=== PATIENT | female | born 1990 | race Caucasian/White ===

== ENCOUNTER 2016-07-31 08:49 | Inpatient (IN) ==
[2016-07-31] MEDS ORDERED: LR 500 ML IV ONE (09:18)
[2016-07-31] MEDS ORDERED: ZOFRAN IV PRN (09:18)
[2016-07-31] MEDS ORDERED: PITOCIN 30 UNITS/LR 30 UNITS/500 ML IV.SOLN IV SCH (09:18)
[2016-07-31] MEDS ORDERED: REGLAN PO ONE (09:18)
[2016-07-31] MEDS ORDERED: STADOL IV PRN (09:18)
[2016-07-31] MEDS ORDERED: PEPCID PO ONE (09:18)
[2016-07-31] MEDS ORDERED: TYLENOL PO PRN (09:18)
[2016-07-31] MEDS ORDERED: PEPCID IV PRN (09:18)
[2016-07-31] MEDS ORDERED: PEPCID PO PRN (09:18)
[2016-07-31] MEDS ORDERED: KEFZOL 1 GM/D5W 1 GM/50 ML IVPB IV PRN (09:18)
[2016-07-31] MEDS ORDERED: SODIUM CHLORIDE 0.9% INJ SCH (09:30)
[2016-07-31] MEDS: LR 1,000 ML IV SCH ×2 (09:35→10:03)
[2016-07-31] MEDS ORDERED: MARCAINE 0.25% PF INJ ONE (09:45)
[2016-07-31] MEDS ORDERED: STADOL ONE (09:47)
[2016-07-31] MEDS ORDERED: FENTANYL-BUPIV-NS 2 MCG-0.1% 200 ML EPIDURAL ONE (10:00)
[2016-07-31] MEDS ORDERED: XYLOCAINE-MPF 1% ONE (10:07)
[2016-07-31] MEDS ORDERED: MINERAL OIL ONE (10:08)
[2016-07-31 10:24] LABS: URINE SOURCE VOIDED
[2016-07-31 10:30] LABS: BILIRUBIN URINE NEGATIVE (NEGATIVE); BLOOD URINE TRACE (NEGATIVE); GLUCOSE URINE NEGATIVE (NEGATIVE); LEUKOCYTES URINE NEGATIVE (NEGATIVE); NITRITE URINE NEGATIVE (NEGATIVE); PROTEIN URINE NEGATIVE (NEGATIVE); UROBILINOGEN URINE NORMAL
[2016-07-31 10:31] LABS: CLARITY CLEAR (CLEAR); COLOR YELLOW
[2016-07-31 10:45] LABS: BASO% 0.1 % (0.0-0.8); EOS# 0.03 X1000 (0.0-0.7); EOS% 0.1 % (0.0-10.0); IMM GRAN# 0.08 X1000 (0.0-0.04); IMM GRAN% 0.4 % (0.0-0.5); LYMPH# 1.75 X1000 (1.2-3.4); LYMPH% 7.9 % (20.5-51.1); MANUAL DIFF NEEDED? YES; MCH 32.2 PG (27-31); MCHC 35.1 g/dL (33-37); MCV 91.6 FL (81-99); MONO# 1.09 X1000 (0.11-0.59); MONO% 4.9 % (1.7-9.3); MPV 9.8 FL (7.4-10.4); NEUT% 86.6 % (42.2-75.2); PLT 263 X1000 (130-400); RBC 4.04 XMIL (4.2-5.4)
[2016-07-31 11:05] LABS: LYMPHS 13 % (21-51); MONO 4 % (1-9)
[2016-07-31] MEDS ORDERED: METHERGINE ONE (13:56)
[2016-07-31] MEDS ORDERED: METHERGINE IV ONE (14:02)
[2016-07-31] MEDS ORDERED: BENADRYL IV PRN (14:08)
[2016-07-31] MEDS ORDERED: BOOSTRIX VACCINE IM ONE (14:08)
[2016-07-31] MEDS ORDERED: PITOCIN IM PRN (14:08)
[2016-07-31] MEDS ORDERED: PERI MEDS (DERMOPLAST/NUPERCAINAL/TUCKS) MISC PRN (14:08)
[2016-07-31] MEDS ORDERED: HYDROXYZINE PO PRN (14:08)
[2016-07-31] MEDS ORDERED: CYTOTEC PO PRN (14:08)
[2016-07-31] MEDS ORDERED: HYDROXYZINE IM PRN (14:08)
[2016-07-31] MEDS ORDERED: NORCO-10 PO PRN (14:08)
[2016-07-31] MEDS ORDERED: NORCO-5 PO PRN (14:08)
[2016-07-31] MEDS ORDERED: AMBIEN PO PRN (14:08)
[2016-07-31] MEDS ORDERED: M-M-R II VACCINE SUBQ ONE (14:08)
[2016-07-31] MEDS ORDERED: MINERAL OIL PO PRN (14:08)
[2016-07-31] MEDS ORDERED: MOTRIN PO PRN (14:08)
[2016-07-31] MEDS ORDERED: BENADRYL PO PRN (14:08)
[2016-07-31] MEDS ORDERED: XYLOCAINE-MPF 1% INJ PRN (14:08)
[2016-07-31] MEDS ORDERED: PITOCIN 20 UNITS/LR 20 UNITS/1,000 ML IV.SOLN IV SCH (14:08)
[2016-07-31] MEDS ORDERED: PITOCIN 30 UNITS/LR 30 UNITS/500 ML IV.SOLN IV ONE (14:08)
[2016-07-31] MEDS ORDERED: PITOCIN 20 UNITS/LR 20 UNITS/1,000 ML IV.SOLN ONE (14:14)
--- NOTE | 2016-07-31 14:50 | OPERATIVE NOTE ---
PROCEDURE DATE: 07/31/2016 PREDELIVERY DIAGNOSES: 1. Intrauterine at 39+ weeks with spontaneous rupture of membranes. 2. Active labor. 3. History of chlamydial infection. POSTDELIVERY DIAGNOSES: 1. Intrauterine at 39+ weeks with spontaneous rupture of membranes. 2. Active labor. 3. History of chlamydial infection. PROCEDURE: Vaginal delivery. PHYSICIAN: Dr. Olaf Smith. ANESTHESIA: Epidural done by Dr. Washington. FINDINGS: A viable male . Do not have weight or Apgars at this time. There were no repairable lacerations of the vagina or perineum. Cord was 3 vessels. Placenta was spontaneous and intact. Please refer to Ms. Rod' records. DESCRIPTION: She presented this morning complaining of rupture of membranes. Membranes were noted to be ruptured. She was in active labor. She was admitted, given Pitocin for augmentation and epidural for pain control. She reached complete cervical dilatation after approximately 6 hours, began pushing and soon after crowned, at which point the bed was broken down, and she was prepped and draped. With continued pushing, she delivered a viable male , occiput anterior, over an intact perineum. Once the head delivered, the shoulders and rest of the body were delivered with little difficulty. The infant was placed on mother's abdomen, cord doubly clamped and cut, care of taken over by nursery personnel. Cord was examined. It was noted to be a 3-vessel cord. Gentle traction resulted in delivery of the placenta, which was inspected and it was noted to be normal. There were no repairable lacerations, just some vaginal skin breaks, so vaginal sweep was done. No clots remained. Placental tissue was noted. No foreign material. All counts were correct. Expect routine . cc: Olaf Smith MD
[2016-08-01] MEDS: PERICOLACE PO SCH ×2 (01:21→20:38)
[2016-08-01 07:03] LABS: BASO% 0.1 % (0.0-0.8); EOS# 0.04 X1000 (0.0-0.7); EOS% 0.2 % (0.0-10.0); HEMATOCRIT 35.9 % (37.0-47.0); HEMOGLOBIN 12.2 g/dL (12.0-16.0); IMM GRAN# 0.07 X1000 (0.0-0.04); IMM GRAN% 0.3 % (0.0-0.5); LYMPH% 10.3 % (20.5-51.1); MANUAL DIFF NEEDED? YES; MCH 31.6 PG (27-31); MONO# 1.45 X1000 (0.11-0.59); MONO% 7.1 % (1.7-9.3); PLT 271 X1000 (130-400); RBC 3.86 XMIL (4.2-5.4)
[2016-08-01 07:56] LABS: BANDS 1 % (0-1); EOS 2 % (1-10); LYMPHS 12 % (21-51); MONO 3 % (1-9)
[2016-08-01] MEDS: PRECARE PO SCH (09:02)
[2016-08-02] MEDS: PRECARE PO SCH (08:17)
[2016-08-02] MEDS: PERICOLACE PO SCH (20:41)
[2016-08-02 23:18] VITALS: BP 110/62
== END 2016-08-02 23:22 | disposition home or self-care (01) ==
LOC: P.OPLD 08:49 → P.LD 08:54 → P.WC 16:38
PROVIDERS: ADMIT Obstetrics & Gynecology; ATTEND Obstetrics & Gynecology